=== PATIENT | female | born 1950 | race Two or more races ===

== ENCOUNTER 2023-08-08 22:15 | Emergency (ER) | payer MEDICARE, OTHER ==
[~2023-08-08] VITALS: Ht 167.6 cm; Wt 144.0 kg
[2023-08-09] MEDS ORDERED: CLIN300C70 PO (01:56)
[2023-08-09 02:37] VITALS: BP 132/64; PULSE 78; RESP 20; TEMP 98; O2SAT 97
== END 2023-08-09 02:39 | disposition home or self-care (01) ==
LOC: ER 22:20
DX: S61.411A Laceration without foreign body of right hand, initial encounter (principal); S61.451A Open bite of right hand, initial encounter; W54.0XXA Bitten by dog, initial encounter; Y93.89 Activity, other specified; Y92.89 Other specified places as the place of occurrence of the external cause; Y99.8 Other external cause status